=== PATIENT | female | born 1990 | race Caucasian/White ===

== ENCOUNTER → 2024-06-11 | Outpatient (CLI) | payer BC ==
[2024-06-11 16:21] LABS: Chlamydia Trachomatis Urine NOT DETECTED (NOT DETECT); Neisseria Gonorrhoea Urine NOT DETECTED (NOT DETECT)
== END ==
LOC: LAB SHORT 11:12 → LAB 11:12
PROVIDERS: Advanced Practice Midwife
DX: Z34.82 Encounter for supervision of other normal pregnancy, second trimester (principal)
CPT/HCPCS: 87491; 87591

== ENCOUNTER 2024-08-26 00:22 | Inpatient (IN) | payer BC ==
[~2024-08-26] VITALS: Ht 165.1 cm; Wt 97.7 kg
[2024-08-26] VITALS (26 sets, daily range): BP systolic 125–178; BP diastolic 65–95
[2024-08-26] MEDS ORDERED: Methylergonovine Maleate 0.2MG / ML 1ML Amp IM PRN ×2 (00:45→08:15)
[2024-08-26] MEDS ORDERED: Calcium Carbonate 500 MG Tab Chew PO PRN (00:45)
[2024-08-26] MEDS ORDERED: Ondansetron HCl 2 MG / ML 2ML Vial IV PRN (00:45)
[2024-08-26] MEDS ORDERED: Misoprostol 200 MCG Tab BC PRN (00:45)
[2024-08-26] MEDS ORDERED: Lactated Ringer's 1,000 ML IV PRN ×2 (00:45→01:55)
[2024-08-26] MEDS ORDERED: Tranexamic Acid 100 ML IV PRN (00:45)
[2024-08-26] MEDS ORDERED: Carboprost Tromethamine 250 MCG/ML 1ML Amp IM PRN ×2 (00:45→08:20)
[2024-08-26] MEDS ORDERED: OXYTOCIN/RINGER'S LACTATE 500 ML IV PRN (00:45)
[2024-08-26] MEDS ORDERED: Acetaminophen 500 MG Tab PO PRN (00:45)
[2024-08-26] MEDS ORDERED: Oxytocin 10 Unit / ML Vial IM PRN (00:45)
[2024-08-26] MEDS ORDERED: Misoprostol 200 MCG Tab PR PRN (00:45)
[2024-08-26] MEDS ORDERED: FentaNYL Citrate 50 MCG/ML 2 ML Injection IV PRN (00:50)
[2024-08-26] MEDS ORDERED: ePHEDrine Sulfate 50 MG/ML 1ML Injection XX PRN (00:50)
[2024-08-26] MEDS ORDERED: Lactated Ringer's 1,000 ML IV SCH ×3 (00:50→08:15)
[2024-08-26] MEDS ORDERED: FentaNYL 2mcg/ml-Bup 0.1% Epd 250 ML EPI PRN (00:50)
[2024-08-26] MEDS ORDERED: PRENATAL TABLE1 EAC2 PO (01:08)
[2024-08-26] MEDS ORDERED: Lactated Ringer's 1,000 ML IV ONE (01:11)
[2024-08-26 01:22] LABS: BASOPHILS ABSOLUTE AUTO 0.03 K/mm3 (0.00-0.23); BASOPHILS PERCENT AUTO 0 % (0-2); EOSINOPHILS ABSOLUTE AUTO 0.09 K/mm3 (0.00-0.68); EOSINOPHILS PERCENT AUTO 1 % (0-6); Hematocrit 41.5 % (33.0-51.0); Hemoglobin 13.9 g/dL (11.5-16.0); IMMATURE GRAN ABSOLUTE AUTO 0.08 K/mm3 (0.00-0.10); IMMATURE GRAN PERCENT AUTO 1 % (0-1); LYMPHOCYTES ABSOLUTE AUTO 1.62 K/mm3 (0.84-5.20); LYMPHOCYTES PERCENT AUTO 14 % (21-46); MONOCYTES ABSOLUTE AUTO 1.07 K/mm3 (0.16-1.47); MONOCYTES PERCENT AUTO 9 % (4-13); Mean Corpuscular HGB 28.6 pg (26.0-34.0); Mean Corpuscular HGB Conc 33.5 g/dL (31.5-36.5); Mean Corpuscular Volume 85 fL (80-100); Mean Platelet Volume 10.6 fL (9.1-12.4); NEUTROPHILS ABSOLUTE AUTO 8.45 K/mm3 (1.96-9.15); NEUTROPHILS PERCENT AUTO 75 % (41-73); Platelet Count 231 K/mm3 (150-400); RDW Coefficient Variation 13.6 % (11.7-14.2); RDW Standard Deviation 41.9 fL (35.1-46.3); Red Blood Cell Count 4.86 M/mm3 (3.80-5.20); White Blood Cell Count 11.34 K/mm3 (4.00-11.30)
[2024-08-26] MEDS ORDERED: Witch Hazel/Glycerin PADS TOP PRN (08:15)
[2024-08-26] MEDS ORDERED: Misoprostol 100 MCG Tab PO PRN (08:15)
[2024-08-26] MEDS ORDERED: Ibuprofen 400 MG Tab PO PRN (08:15)
[2024-08-26] MEDS ORDERED: Ketorolac Tromethamine 30mg Vial IV PRN (08:15)
[2024-08-26] MEDS ORDERED: OxyCODONE 5 mg/Acetamin 325 mg TABLET PO PRN (08:20)
[2024-08-26] MEDS ORDERED: Docusate Sodium 100 MG Cap PO PRN (08:20)
[2024-08-26] MEDS ORDERED: OXYTOCIN/RINGER'S LACTATE 500 ML IV SCH (08:20)
[2024-08-26] MEDS ORDERED: Lanolin Cream TOP PRN (08:20)
[2024-08-26] MEDS ORDERED: Acetaminophen 325 MG TABLET PO PRN (08:20)
[2024-08-26] MEDS ORDERED: Benzocaine Topical Anesthetic Spray 60GM TOP PRN (08:20)
[2024-08-26] MEDS ORDERED: Prenatal Vit/FE Fumarate/FA 1 Tab PO SCH (09:00)
[2024-08-26] MEDS ORDERED: Misoprostol 200 MCG Tab PO ONE (17:10)
[2024-08-27 04:18] VITALS: BP 133/72
[2024-08-27 06:25] LABS: Hematocrit 39.2 % (33.0-51.0); Mean Corpuscular HGB 28.9 pg (26.0-34.0); Mean Corpuscular HGB Conc 33.2 g/dL (31.5-36.5); Mean Corpuscular Volume 87 fL (80-100); Mean Platelet Volume 10.5 fL (9.1-12.4); Platelet Count 209 K/mm3 (150-400); RDW Coefficient Variation 13.7 % (11.7-14.2); RDW Standard Deviation 43.6 fL (35.1-46.3); White Blood Cell Count 11.31 K/mm3 (4.00-11.30)
[2024-08-27 06:41] LABS: Glucose, Blood 100 mg/dL (70-99)
[2024-08-27 07:49] VITALS: BP 120/67
== END 2024-08-27 09:49 | disposition home or self-care (01) | DRG 807 ==
LOC: OBS 00:22 → BC 00:27 → OBS 00:44 → BC 00:45
PROVIDERS: ADMIT Advanced Practice Midwife
PROC: 10E0XZZ Delivery of Products of Conception, External Approach (ICD-10-PCS; principal; 2024-08-26)
PROC: 3E0R3BZ Introduction of Anesthetic Agent into Spinal Canal, Percutaneous Approach (ICD-10-PCS; 2024-08-26)
PROC: 00HU33Z Insertion of Infusion Device into Spinal Canal, Percutaneous Approach (ICD-10-PCS; 2024-08-26)
PROC: 0HQ9XZZ Repair Perineum Skin, External Approach (ICD-10-PCS; 2024-08-26)
DX: O24.429 Gestational diabetes mellitus in childbirth, unspecified control (principal); Z37.0 Single live birth; O70.0 First degree perineal laceration during delivery; Z39.2 Encounter for routine postpartum follow-up; Z3A.39 39 weeks gestation of pregnancy
CPT/HCPCS: 36415; 51702; 59025; 81003; 82947; 85025; 85027; 86850; 86900; 86901; 86923; 96374; 99211; 99213; 99214; A9270; J1885; J2405; J2765; J7120